=== PATIENT | male | born 1975 | race Caucasian/White ===

== ENCOUNTER → 2017-07-21 12:46 | Outpatient (CLI) | payer BC, SELFPAY ==
[2017-07-21 13:14] LABS: Basophils % 0.8 % (0.1-2.0); Eosinophils # 0.2 K/mm3 (0.0-0.4); Eosinophils % 3.6 % (0.1-12.0); Hematocrit 45.3 % (42.0-52.0); Hemoglobin 14.4 g/dL (14.1-18.0); Lymphocytes # 0.9 K/mm3 (0.7-4.5); Lymphocytes % 19.5 K/mm3 (10-50); Mean Corpuscular HGB Conc 31.7 g/dL (31.8-35.4); Mean Corpuscular Hemoglobin 29.3 pg (27.0-31.2); Mean Corpuscular Volume 92.3 fl (80-94); Mean Platelet Volume 8.2 fl (7.4-10.4); Monocytes # 0.5 K/mm3 (0.1-1.0); Monocytes % 10.1 % (1.7-9.3); Neutrophils # 3.1 K/mm3 (1.8-7.8); Platelet Count 232 K/mm3 (142-424); Red Blood Count 4.91 M/mm3 (4.60-6.20); Red Cell Distribution Width 13.3 % (11.5-17.5); White Blood Count 4.7 K/mm3 (4.8-10.8)
[2017-07-21 13:30] LABS: Alanine Aminotransferase 43 U/L (12-78); Albumin Level 3.7 gm/dL (3.4-5.0); Alkaline Phosphatase 118 U/L (46-116); Anion Gap 9.7 mEq/L (5-15); Aspartate Amino Transferase 20 U/L (15-37); Bilirubin,Total 0.2 mg/dL (0.2-1.0); Blood Urea Nitrogen 11 mg/dL (7-18); Carbon Dioxide 31 mmol/L (21.0-32.0); Chloride 108 mmol/L (98-107); Chol/HDL Ratio 2.8 (1-3.5); Cholesterol 177 mg/dL (140-200); Creatinine,Serum 0.83 mg/dL (0.70-1.30); Estimated Glomerular Filt Rate 101 ml/min (>60); Free T4 (Free Thyroxine) 0.97 ng/dl (0.76-1.46); GFR (African American) 122 ML/MIN (>60); Globulin 3.8 gm/dl (1.3-3.2); Glucose 99 mg/dL (74-106); HDL Cholesterol 63 mg/dL (27-67); LDL Cholesterol 101 mg/dL (0-130); Potassium 4.7 mmoL/L (3.5-5.1); Sodium 144 mmol/L (136-145); Thyroid Stimulating Hormone 2.41 uIU/ml (0.358-3.740); Total Protein,Serum 7.5 gm/dL (6.4-8.2); Triglycerides 67 mg/dL (30-200); VLDL Cholesterol 13 mg/dL (0-40)
== END ==
PROVIDERS: Visit Provider Emergency Medicine
DX: E66.3 Overweight (principal); R53.83 Other fatigue; R05 Cough
CPT/HCPCS: 36415; 80053; 80061; 84439; 84443; 85025

== ENCOUNTER → 2017-09-08 09:01 | Outpatient (REF) | payer BC, SELFPAY ==
[2017-09-11 19:21] LABS: Testosterone,Free 7.9 pg/mL (6.8-21.5)
[2017-09-12 18:31] LABS: Testosterone, Total, LC/MS 571.9 ng/dL (264.0-916.0)
== END ==
LOC: LAB 09:01
PROVIDERS: Visit Provider Physician Assistant
DX: R68.82 Decreased libido (principal)
CPT/HCPCS: 84402

== ENCOUNTER → 2019-01-28 07:20 | Outpatient (CLI) | payer BC, SELFPAY ==
--- NOTE | 2019-01-28 | CA_ITS ---
APPROVED REPORT Exam: Pharmacologic Technologist: sarah baez, Ht: 6 ft 0 in Wt: 240 lbs BSA: 2.30 m2 HR: 57 bpm Rhythm: NSR Indications: CP Medical History Medications: Omeprazole,,,,, Effexor,,,,, Mobic,,,,, MeLOXICAM,,,,, SilDENAFIL,,,,, VenALafaxine,,,,, Allergies: PCN Stress Test Details Test: Jeramie HR Resting HR: 75 bpm Max Heart Rate (APMHR): 175 bpm Max HR Achieved: 162 bpm Target HR (85% APMHR): 148 bpm % of APMHR: 92 Recovery HR: 97 bpm BP Resting BP: 139.0/79.0 mmHg Max BP: 176.0/77.0 mmHg Recovery BP: 176.0/77.0 mmHg ECG Resting ECG: NSR Clinical Reason for Termination: Dyspnea Exercise duration: 10:30 min Highest Stage Achieved: Exercise capacity: 12.8 METs Stress ECG Conclusion NO CHEST PAIN DURING EXERCISE. POSITIVE FOR SOA/LEG PAIN. EXERCISED 10:30. 12.8 METS. MAX HEART RATE 155 BPM WHICH IS 105% OF PM FOR AGE. TEST STOPPED DUE TO SOA AND LEG PAIN. NO ARRHYTHMIAS/ECTOPY. NO ST-T CHANGES. NEGATIVE TEST. Test Summary REST . . . . . . . Standing REST . . . . . . . Sitting REST 18:36 0.0 0.0 75 . 139/ 79 . . Stage 1 01:00 10.0 1.7 88 . . . . Stage 1 02:00 10.0 1.7 94 . . . . Stage 1 03:00 10.0 1.7 99 . 152/ 80 . . Stage 2 01:00 12.0 2.5 102 . . . . Stage 2 02:00 12.0 2.5 112 . . . . Stage 2 03:00 12.0 2.5 111 . 160/ 80 . . Stage 3 01:00 14.0 3.4 123 . . . . Stage 3 02:00 14.0 3.4 128 . . . . Stage 3 03:00 14.0 3.4 134 . 170/ 84 . . Stage 4 . . . . . . . Cardiolite injected Stage 4 01:00 16.0 4.2 86 . . . . Stage 4 01:30 16.0 4.2 109 . . . Stop exercise at 10:30 RECOVERY 01:00 0.0 0.0 135 . . . . RECOVERY 02:00 0.0 0.0 101 . . . . RECOVERY 03:00 0.0 0.0 96 . 176/ 77 . . RECOVERY 04:00 0.0 0.0 86 . 160/ 63 . . RECOVERY 04:20 0.0 0.0 87 . 160/ 63 . . Electronically signed by : Destin Ramos, 01/28/2019 19:43:05
--- NOTE | 2019-01-28 07:21 | NM_ITS ---
APPROVED REPORT Exam: Nuclear Stress Test Indication: ankush toth Patient Location: Outpatient Stress Tech: Merlyn Jefferson MI Tech:AMILCAR Gilbret RT (R)(N)(M) Ht: 6 ft 0 in Wt: 240 lbs HR: 57 bpm BP: 139/79 mmHg BSA: 2.30 m2 History: ankush toth Procedure: Patient exercised on Jeramie protocol 10:30 minutes and sec, resting heart rate 57 bpm, resting blood pressure 139/79 mmHg, with exercise maximum heart rate achived was 129 bpm which is Greater than 85 % of the maximum predicted heart rate and blood pressure was 170/84 mmHg. Test was stopped due to Shortness of breath. Patient denied any complaint of chest pain. Patient has Good exercise capacity, achieved 12.8 METs of workload on treadmill, the blood pressure response to exercise was Adequate.. Electrocardiogram Resting electrocardiogram showed sinus rhythm right ventricular conduction delay, with exercise there is less than 1.[address] segment depression noted from the baseline EKG. The EKG portion of the exercise Myoview is negative for ischemia. Cardiac Stress and Resting SPECT Images: Cardiac Stress and Resting SPECT images were obtained using technetium 99m Myoview 30.3 mCi stress and 10.64 mCi at rest. Gated SPECT with analysis of segmental wall motion and calculation of the ejection fraction also done. Cardiac stress and resting SPECT images show mild fixed defect in the inferior wall with normal contractility and the gated SPECT is likely secondary to soft tissue attenuation, no reversible ischemia seen. Computer derived ejection fraction is over 65% with no regional wall motion abnormality, right ventricle is normal size and contractility. Conclusion: 1. The EKG portion of the exercise Myoview is negative for ischemia. Patient has good exercise capacity achieved 12.8 mets of workload on treadmill, the blood pressure response to exercise was adequate, there was no exercise-induced chest discomfort . 2. No scintigraphic evidence of reversible ischemia seen, computer derived ejection fraction is over 65% with no regional wall motion abnormality, right ventricle is normal size and contractility. 3. Normal exercise Myoview study. Electronically signed by : Destin Ramos, 01/28/2019 19:46:05
--- NOTE | 2019-01-28 07:21 | CA_ITS ---
APPROVED REPORT EXAM: Comprehensive 2D, Doppler, and color-flow Echocardiogram Director Of Education: Gabrielle Sweeney RT(R) Ht: 5 ft 9 in Wt: 201lbs BSA: 2.07 BP: 113/69 mmHg Indications: CP, ex smoker, GERD, hx of gastric sleeve 2D Dimensions LVOT 2.20 cm (M/F) 1.5-2.5 M-Mode Dimensions RVDd 1.51 cm (0.9-2.6) LVDd 5.45 cm (3.5-5.7) LVDs 3.97 cm (3.5-5.7) IVSd 0.77 cm (0.6-1.1) PWd 0.91 cm (0.6-1.1) EF (Teich) 52.40% FS 27.20% EDV (Teich) 144.40 mL ESV (Teich) 68.80 mL LV Diastology E/A Ratio 1.37 Mitral Valve MV A Velocity 57.00 (40-130 cm/s) Left Ventricle Left atrium is normal size, left ventricle is normal size, visually estimated ejection fraction 55% with no regional wall motion abnormality, diastolic parameters are inconclusive. Right Ventricle Right atrium and right ventricular normal size and contractility. Aortic Valve Aortic valve is minimally thickened and fibrosed. There is no aortic stenosis aortic insufficiency. Mitral Valve Mitral valve is grossly normal, there is mild mitral regurgitation. Tricuspid Valve Tricuspid valve is grossly normal, there is mild tricuspid regurgitation. Pulmonic Valve Pulmonic valve is poorly visualized. Great Vessels Aortic root is normal size. Pericardium No significant pericardial effusion noted. Conclusion 1. Normal left ventricular size, preserved left ventricular systolic function, visually estimated ejection fraction 55% with no regional wall motion abnormality, diastolic parameters are inconclusive. 2. Mild mitral and tricuspid regurgitation 3. No significant pericardial effusion noted. Electronically signed by : Destin Ramos, 01/28/2019 20:25:00
--- NOTE | 2019-01-28 10:26 | HMH.ITSHM ---
Current Home Medications as stated by this patient Davon Wilson or auto service representative. []omeprazole mobic effexor meloxicam
== END ==
PROVIDERS: PCP Physician Assistant; Visit Provider Internal Medicine
DX: R07.9 Chest pain, unspecified (principal); Z78.9 Other specified health status; Z87.891 Personal history of nicotine dependence
CPT/HCPCS: 78452; 93017; 93306; A9502

== ENCOUNTER → 2019-02-08 13:43 | Outpatient (CLI) | payer BC, SELFPAY ==
[2019-02-08 14:34] LABS: Amphetamine/Metha Screen,Urine Negative ng/mL (<1000); Barbiturates Screen,Urine Negative ng/mL (<200); Benzodiazepines Screen,Urine Negative ng/mL (<200); Cannabinoid Screen,Urine Negative ng/mL (<50); Cocaine Screen,Urine Negative ng/mL (<300); Methadone Screen,Urine Negative ng/mL (<300); Opiate Screen,Urine Negative ng/mL (<300); Phencyclidine Screen,Urine Negative ng/mL (<25)
== END ==
PROVIDERS: Visit Provider Nurse Practitioner Family
DX: E66.9 Obesity, unspecified (principal); Z68.38 Body mass index [BMI] 38.0-38.9, adult
CPT/HCPCS: 80305

== ENCOUNTER 2020-04-21 14:27 | Emergency (ER) | payer BC, SELFPAY ==
[2020-04-21 14:50] VITALS: BP 117/86; PULSE 89; RESP 19; TEMP 36.9; O2SAT 98; BMI 37.4
--- NOTE | 2020-04-21 15:53 | HMH.EDUTC ---
[facility] Disposition Clinical Impression: Exposure to COVID-19 virus Disposition: Home, Self-Care Condition on Discharge: Good Instructions: DI for COVID-19 (Suspected or Confirmed ), Preventing the Spread of Coronavirus Discharge Instructions, Coronavirus Disease 2019 Additional Instructions: *Monitor Temp, Over the counter Motrin or Tylenol as directed/as needed Tylenol every 4 hours and Motrin every 6 hours (as long as your family doctor has told you that you can take it) for fever or pain. and straight to ER if unable to lower temp less than 101.0 after medication given *Warm salt water gargles may help to soothe the throat *Throat Lozenges *Warm fluids like tea with honey may help to soothe the throat *Sleep elevated *Humidifier/Vaporizer Follow up IMMEDIATELY for new or worsening symptoms or no Noticeable improvement over the next 48-72 hours. 911 for difficulty breathing or swallowing You were tested for today for COVID19 your test result should be back in the next 24-48 hours, you may call to the [facility] to see if your test results are back in the next 48 hours [phone] [facility] hours are 9am-9pm You was given a handout with instructions for Self Quarantine and Self isolation for while you wait on test results and what to do if they are positive If you are positive the Health Dept will be contacting you also Referrals: Yas Arndt PA [Primary Care Provider] - As needed Forms: Work/School Release Time of Disposition: 15:54 Medical Decision Making - Gabriel Inquiry Pt receiving controlled substance: No Gabriel was queried for this patient: No Vital Signs: 04/21/20 14:50 Temperature 98.4 F Temperature Source Oral Pulse Rate [Right Brachial] 89 Respiratory Rate 19 Blood Pressure [Right Arm] 117/86 Blood Pressure Mean [Right Arm] 96 Blood Pressure Source [Right Arm] Automatic Cuff Blood Pressure Position [Right Arm] Sitting 02 Sat by Pulse Oximetry 98 Oxygen Delivery Method Room Air Orders (Tests/Meds): ORDERS Category Date Time Status Covid-19 Nasal PCR ([facility]) Routine Lab 04/21/20 14:56 Received [facility] HPI - General Stated complaint: covid test Time Seen by Provider: 04/21/20 15:53 Mode of Arrival: Ambulatory Source of Information: Patient Limitations: No Limitations Description of Symptoms (Recalled from Triage Doc. by RN): COVID TEST D/T EXPOSURE; C/O FATIGUE, BODY ACHES, AND HEADACHE SINCE THURSDAY HEENT Symptoms (Recalled from RN notes): No Resp Symptoms (Recalled from RN notes): No Skin Symptoms (Recalled from RN notes): No MS Symptoms (Recalled from RN notes): No Functional Status (Recalled from RN notes): WNL - History of Present Illness Provider Complaint: Patient states that he was recently around someone that tested positive for COVID States that he has been having sinus congestion and feeling full in his ears States that he noticed today he was feeling tired and sleeping alot so he come in to get tested for COVID - Related Data Previous Rx's Medication Instructions Recorded omeprazole 40 mg capsule,delayed 40 mg PO DAILY 90 Days #90 cap 09/19/19 release Allergies Allergy/AdvReac Type Severity Reaction Status Date / Time Penicillins Allergy Mild Verified 02/08/19 09:32 - Worker's Comp Is this a Worker's Comp case?: No [facility] History - Hepatitis A Screen Drug use history?: No High risk sexual behaviors?: No History of sexually transmitted infection?: No Currently employed?: No Childcare worker?: No Do you have indoor plumbing?: Yes Do you have electricity?: Yes Attestation statement:: This patient has been screened for Hepatitis A risk factors. I have reviewed the patient's past medical history: Yes Medical History: Reports:: Depression, Gastroesophageal Reflux Disease(GERD) Denies:: Diabetes Mellitus Type 1, Diabetes Mellitus Type 2 Laterality Cases: Bilateral: Carpal Tunnel Release, Myringotomy (Ear Tubes), Tonsillectomy Other Surgeries: Yes:
[2020-04-21 16:14] VITALS: BP 117/86; PULSE 89; RESP 19; TEMP 36.9; O2SAT 98
--- NOTE | 2020-04-21 20:42 | PC.NURSE ---
PT NOTIFIED OF POSITIVE COVID RESULT
== END 2020-04-21 16:15 | disposition home or self-care (01) ==
PROVIDERS: Emergency Provider Nurse Practitioner; PCP Physician Assistant
DX: U07.1 COVID-19 (principal); K21.9 Gastro-esophageal reflux disease without esophagitis; F33.1 Major depressive disorder, recurrent, moderate; F17.290 Nicotine dependence, other tobacco product, uncomplicated; Z88.0 Allergy status to penicillin
CPT/HCPCS: 99202; G0463; U0003

== ENCOUNTER → 2022-05-21 23:30 | Outpatient (CLI) | payer BC, SELFPAY ==
[2022-05-21 19:19] LABS: Alanine Aminotransferase 27 U/L (12-78); Albumin Level 4.4 g/dl (3.5-5.0); Albumin/Globulin Ratio 1.7 (1.1-1.8); Alkaline Phosphatase 96 U/L (38-126); Anion Gap 10.9 mEq/L (5-15); Aspartate Amino Transferase 28 U/L (17-59); Bilirubin,Total 0.4 mg/dl (0.2-1.3); Blood Urea Nitrogen 15 mg/dl (9-20); Calcium 9.1 mg/dl (8.4-10.2); Carbon Dioxide 27 mmol/L (22.0-30.0); Chloride 105 mmol/L (98-107); Chol/HDL Ratio 3.3 (1-3.5); Cholesterol 184 mg/dl (140-200); Estimated Glomerular Filt Rate 103 ml/min (>60); GFR (African American) 124 ML/MIN (>60); Globulin 2.6 g/dL (1.3-3.2); Glucose 75 mg/dl (74-100); HDL Cholesterol 56 mg/dl (40-60); Potassium 3.9 mmoL/L (3.5-5.1); Sodium 139 mmol/L (136-145); Triglycerides 93 mg/dl (30-150); VLDL Cholesterol 19 mg/dL (0-40)
[2022-05-21 19:48] LABS: Prostate Specific Ag Screen 0.8 ng/ml (0.0-4.0); Thyroid Stimulating Hormone 1.92 uIU/mL (0.465-4.68)
== END ==
PROVIDERS: PCP Physician Assistant; Visit Provider Physician Assistant
DX: Z00.00 Encounter for general adult medical examination without abnormal findings (principal); Z79.899 Other long term (current) drug therapy; Z12.5 Encounter for screening for malignant neoplasm of prostate
CPT/HCPCS: 80053; 80061; 84443; G0103

== ENCOUNTER → 2022-06-06 13:37 | Outpatient (CLI) | payer BC, SELFPAY ==
--- NOTE | 2022-06-06 13:45 | XR_ITS ---
FINAL REPORT CLINICAL HISTORY: foot pain FINDINGS: Right foot Three views were obtained. There is no acute fracture or dislocation. The joint spaces appear normal. No soft tissue abnormality is identified. IMPRESSION: No acute process. Reviewed, Interpreted and Dictated by Yevgeniy Barrett III, MD Transcribed by Iveth Miller Authenticated and [facility]
--- NOTE | 2022-06-06 13:45 | XR_ITS ---
FINAL REPORT CLINICAL HISTORY: foot pain FINDINGS: Left foot Three views were obtained. There is no acute fracture or dislocation. The joint spaces appear normal. No soft tissue abnormality is identified. There is calcaneal spurring. IMPRESSION: No acute process. Reviewed, Interpreted and Dictated by Yevgeniy Barrett III, MD Transcribed by Iveth Miller Authenticated and [facility]
== END ==
LOC: RAD 13:39
PROVIDERS: PCP Physician Assistant; Visit Provider Nurse Practitioner Family
DX: M79.672 Pain in left foot (principal); M79.671 Pain in right foot
CPT/HCPCS: 73630

== ENCOUNTER → 2022-06-11 10:20 | Outpatient (CLI) | payer BC, SELFPAY ==
--- NOTE | 2022-06-11 10:23 | XR_ITS ---
FINAL REPORT CLINICAL HISTORY: ankle pain FINDINGS: AP, oblique, and lateral views of the left ankle were obtained. There is no prior exam for comparison. There is no fracture or dislocation. There is mild degenerative joint disease. The ankle mortise is intact. Soft tissues are normal. IMPRESSION: Mild degenerative joint disease. Reviewed, Interpreted and Dictated by Leia Emmanuel MD Transcribed by Iveth Miller Authenticated and [facility]
== END ==
LOC: RAD 10:21
PROVIDERS: PCP Physician Assistant; Visit Provider Physician Assistant Medical
DX: M25.572 Pain in left ankle and joints of left foot (principal)
CPT/HCPCS: 73610

== ENCOUNTER → 2022-07-22 14:14 | Outpatient (CLI) | payer BC, SELFPAY ==
--- NOTE | 2022-07-22 14:21 | US_ITS ---
FINAL REPORT CLINICAL HISTORY: BILATERAL REST PAIN,LT LEG CLAUDICATION FINDINGS: COMPLETE ANKLE/BRACHIAL INDICES BILATERAL Complete ankle brachial indices were obtained bilaterally. The right DARIUSZ is 1.2. The left DARIUSZ is 1.2. IMPRESSION: ABIs are within normal limits bilaterally. Reviewed, Interpreted and Dictated by Yevgeniy Barrett III, MD Transcribed by Iveth Miller Authenticated and [facility]
--- NOTE | 2022-07-22 14:54 | MR_ITS ---
FINAL REPORT CLINICAL HISTORY: ankle pain, r/o soft tissue mass FINDINGS: Multiplanar MR imaging of the left ankle was performed without contrast. Mild degenerative changes are present. The bony structures are intact without evidence of fracture, bone bruise or marrow edema. No osteochondral lesion is identified. The anterior talofibular ligament is not well seen, likely torn. There is irregularity of the calcaneofibular ligament, may represent a partial tear. The flexor and extensor tendons are intact. There is posterior plantar fasciitis. There is a small partial tear of the posterior plantar aponeurosis. No significant joint effusion is seen. The musculature is intact. There is no evidence of soft tissue mass or cyst. IMPRESSION: Likely tear of the anterior talofibular ligament. Partial tear of the calcaneofibular ligament. Small partial tear of the posterior plantar aponeurosis. Posterior plantar fasciitis. Reviewed, Interpreted and Dictated by Yevgeniy Barrett III, MD Transcribed by Iveth Miller Authenticated and . [facility]
== END ==
LOC: RT 14:15
PROVIDERS: PCP Physician Assistant; Visit Provider Nurse Practitioner Family
DX: I83.93 Asymptomatic varicose veins of bilateral lower extremities (principal); R09.89 Other specified symptoms and signs involving the circulatory and respiratory systems; M25.572 Pain in left ankle and joints of left foot
CPT/HCPCS: 73721; 93923

== ENCOUNTER → 2022-08-12 10:25 | Outpatient (CLI) | payer BC, SELFPAY ==
--- NOTE | 2022-08-12 10:26 | ECG_ITS ---
APPROVED REPORT Exam: Resting ECG HR:66 bpm ECG Measurements Heart Rate 66 AXES AR 191 P 62 QRSd 105 QRS 45 QT 371 T 51 QTc 384 Conclusion SINUS RHYTHM Normal ECG UNCONFIRMED REPORT Electronically signed by : Ritesh Chang MD 08/12/2022 20:17:55
--- NOTE | 2022-08-12 10:46 | XR_ITS ---
FINAL REPORT TECHNIQUE: Chest PA & Lateral CLINICAL HISTORY: HTN FINDINGS: 2 views of the chest were performed. The heart size is normal. The mediastinum is within normal limits. There is no acute infiltrate. There are no pleural effusions. There is no pneumothorax. The bony thorax appears intact. IMPRESSION: No acute cardiopulmonary process. Reviewed, Interpreted and Dictated by Justo Be MD Transcribed by Ronny Rodriguez Authenticated and [facility]
[2022-08-12 11:14] LABS: Basophils # 0.1 K/mm3 (0-0.2); Basophils % 0.7 % (0.1-2.0); Eosinophils # 0.2 K/mm3 (0.0-0.4); Eosinophils % 2.3 % (0.1-12.0); Hematocrit 42.1 % (42.0-52.0); Hemoglobin 13.7 g/dL (14.1-18.0); Lymphocytes # 2.9 K/mm3 (0.7-4.5); Lymphocytes % 39.4 % (10-50); Mean Corpuscular HGB Conc 32.5 g/dL (31.8-35.4); Mean Corpuscular Hemoglobin 29.2 pg (27.0-31.2); Mean Corpuscular Volume 89.7 fl (80-94); Mean Platelet Volume 8.2 fl (7.4-10.4); Monocytes # 0.4 K/mm3 (0.1-1.0); Monocytes % 5.7 % (1.7-9.3); Neutrophils # 3.8 K/mm3 (1.8-7.8); Neutrophils % 51.8 % (37.0-80.0); Platelet Count 284 K/mm3 (142-424); Red Blood Count 4.69 M/mm3 (4.60-6.20); White Blood Count 7.3 K/mm3 (4.8-10.8)
[2022-08-12 11:39] LABS: Alanine Aminotransferase 27 U/L (12-78); Albumin Level 3.9 g/dl (3.5-5.0); Albumin/Globulin Ratio 1.7 (1.1-1.8); Alkaline Phosphatase 84 U/L (38-126); Anion Gap 12.6 mEq/L (5-15); Aspartate Amino Transferase 24 U/L (17-59); Bilirubin,Total 0.6 mg/dl (0.2-1.3); Blood Urea Nitrogen 10 mg/dl (9-20); Carbon Dioxide 31 mmol/L (22.0-30.0); Chloride 99 mmol/L (98-107); Estimated Glomerular Filt Rate 90 ml/min (>60); GFR (African American) 109 ML/MIN (>60); Globulin 2.3 g/dL (1.3-3.2); Glucose 94 mg/dl (74-100); Potassium 4.6 mmoL/L (3.5-5.1); Sodium 138 mmol/L (136-145); Total Protein,Serum 6.2 g/dl (6.3-8.2)
== END ==
PROVIDERS: PCP Physician Assistant; Visit Provider Podiatrist
DX: Z01.818 Encounter for other preprocedural examination (principal)
CPT/HCPCS: 36415; 71046; 80053; 85025; 93005

== ENCOUNTER 2022-08-27 09:50 | Day surgery (SDC) | payer BC, SELFPAY ==
[2022-08-25 14:05] VITALS: BMI 38.0
[2022-08-27] VITALS (11 sets, daily range): BP systolic 111–146; BP diastolic 64–98; PULSE 64–92; RESP 12–18; TEMP 36.2–43; O2SAT 95–97
--- NOTE | 2022-08-27 10:18 | P.PN_ITS ---
[facility] Disclaimer: The information contained in this section may have been updated after the patient was seen, as this information can be updated by other users. 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 Anesthesia Checklist Patient Identification Patient Identification: Arm Band and Verbal (Name & ) Structural Data Admitted From: Home Planned Operative Procedure/s: Plantar fasciotomy Consent for Planned Operative Procedure(s) Verified: Yes NPO Status Verified Time NPO: 00:00 Chart Verification Results Verified: CBC and BMP Additional verifications Anesthesia Reactions: No Hx Blood Transfusions: No Airway Assessment C-Spine Mobility Assessed: Yes TMJ Mobility Assessed: Yes Dentition: Edentulous Neurological Assessment Level of Consciousness: Awake Hx Seizures: No Numbness or tingling in extremities: No Anesthesia Plan Anesthesia Risk discussed: Yes Anesthesia Plan: Verified ASA Class: II Anesthesia Type: General w/block
--- NOTE | 2022-08-27 10:30 | XR_ITS ---
FINAL REPORT CLINICAL HISTORY: Plantar Fasciotomy/Release w ankle stabilization FINDINGS: FLUOROSCOPY LESS THAN 1 HOUR HISTORY: Fluoroscopy guided injection. FINDINGS: Fluoroscopic guidance was provided for left ankle injection. A single spot film was obtained. Four seconds of fluoroscopy time were used. IMPRESSION: As above Reviewed, Interpreted and Dictated by Yevgeniy Barrett III, MD Transcribed by Molly Chandler Authenticated and [facility]
--- NOTE | 2022-08-27 10:57 | SUR.PREOP ---
1055 - TIME OUT PERFORMED AT THIS TIME FOR LEFT POPLITEAL NERVE BLOCK. Sangeetha JIMENEZ, ASSISTANT BOYS TRACK COACH PERFORMING, Rubén JOY, ASSISTANT BOYS TRACK COACH AT BEDSIDE WELL. CONT PULSE OX MONITORING APPLIED. PT PLACE ON 3 L O2 PER NASAL CANNULA. PROCEDURE END TIME @ 1110
--- NOTE | 2022-08-27 12:34 | SUR.OPER ---
1200- Received handoff report from CLAUDIA Martínez at this time.
--- NOTE | 2022-08-27 12:39 | SUR.OPER ---
1239- Called to preop and spoke with CLAUDIA Forrester and requested that she update the family per MD Azar.
--- NOTE | 2022-08-27 13:30 | XR_ITS ---
FINAL REPORT CLINICAL HISTORY: Post op ankle stab COMPARISON: 06/11/2022 FINDINGS: Left and Three views were obtained. Cast obscures the detail. Mild degenerative changes are present. IMPRESSION: No acute process. Reviewed, Interpreted and Dictated by Yevgeniy Barrett III, MD Transcribed by Iveth Miller Authenticated and [facility]
--- NOTE | 2022-08-27 13:31 | P.PNANES_ITS ---
[facility] Anesthesia Record Part I Anesthesia Record I Intake, IV Amount: 1,000 Estimated blood loss (mL): 30 Urine output (mL): 0 Blood Pressure: 146/89 SaO2: 97 Pulse Rate: 92 Respiratory Rate: 13 Temperature: 97.3 F Patient is:: Drowsy and Oral/Nasal airway Stable to PACU at:: 13:30
--- NOTE | 2022-08-27 14:11 | EXP.OP.NOTE ---
Date of procedure: 08/27/22 Pre-op Diagnosis:: Left ankle instability Left peroneal tenosynovitis Left ankle synovitis Left planter fasciitis Left gastrocnemius equinus Post-op Diagnosis:: Same Procedure performed:: Modified Brostrum ATFL + CFL repair Left ankle arthroscopy with extensive debridement Left gastrocnemius recession Left peroneal tenoynovectomy Left plantar fasciotomy Application of amniotic graft Surgeon:: Daisy Toney DPM GILL BOX OPERATOR:: Chuy Stephenson Anesthesia: GETA and regional (L popliteal nerve block) Estimated blood loss (mL): 30 Clinical Note:: Patient is a 47 year male who presents with left ankle instability and plantar fasciitis. History of right plantar fascia release with good outcomes. He has failed conservative care to left side including immobilization, modification of shoe gear, strapping, inserts, ice, elevation, and NSAIDs. He has also tried ankle bracing and home physical therapy. After a long discussion with the patient in regards to the conservative versus surgical treatment for the tendon tear/deformity, the patient has elected to proceed with surgery because they have failed conservative treatment and continue to have pain and worsening symptoms affecting daily activities.? The patient has been instructed on the planned procedure including ankle scope, ATFL/CFL repair/ankle stab, peroneal tendon repair, PF release, partial achilles lengthening, all risk versus benefits of the procedure discussed.? These include but are not limited to: bleeding, infection, nerve and blood vessel damage, need for further surgery, delay in healing of soft tissue or bone, tendon re-rupture, recurrence of deformity, arch collapse, nerve pain, failure of bones to heal, non-union, mal-union, failure of the implant, prolonged pain and recovery, prolonged edema, CRPS/RSD, DVT/PE and anesthetic complications. No guarantees were given. All questions fully answered. The patient verbalized understanding and agreed to proceed with surgery. Written consent was obtained. Operative findings:: Left ankle scope showed extensive synovitis noted. No obvious talar osteochondral defect appreciated. Left ankle instability with tear ATFL and partial tear CFL. Positive anterior drawer and talar tilt noted. Gastrocnemius equinus appreciated. Peroneal tendons intact but tenosynovitis noted to the brevis and the longus. No evidence of longitudinal tear or rupture. Planter fascia chronic synovitis. Operative note:: On this date and time patient was deemed an appropriate surgical candidate. With informed consent signed, the patient was given a pre-op left leg regional block by anesthesia. Patient was taken to the operating theater. The patient was positioned supine. General anesthesia was induced. Tourniquet was applied to the left thigh @250mmHg. IV clindamycin given. Left ankle arthroscopy with extensive debridement: Standard anterior ankle portals made with stab incision. Blunt dissection down to the level of the capsule and down to bone. An Arthrex Eve scope 1.8 mm was inserted into the medial and lateral ankle in standard technique. Synovitis noted. A Plinga 2.5 mm shaver was inserted and extensive debridement of synovitic nonviable tissue performed. No obvious talus OCD appreciated. Images taken with the scope camera. Skin cleansed. Nylon used to close the skin. Left peroneal tenosynovectomy: Incision was mapped out extending under the distal tip of the fibula along the course of the peroneal tendons. Dissection was carried down and the ATFL was visualized and noted to be attenuated and torn. CFL was also partially torn. The peroneal tendons were evaluated and no obvious tears or ruptures were noted. The peroneal tendons did have synovitis. 15 blade forceps used to debride the nonviable tendon. Wound was flushed with saline. Left modified Brostr?m ankle ligament stabilization repair: Attention was directed to the ATFL and CFL. In standard technique
--- NOTE | 2022-08-27 14:22 | SUR.PHASEII ---
Discharge teaching completed with pt and family, verbalized understanding of all info given. Kryo cuff supplied to pt. Pt verbalized pain at a 3 but is okay and will wait until gets home to take pain medication. Pt Care passed to Theron Mcgovern RN, report given.
--- NOTE | 2022-08-29 13:54 | P.PNANES_ITS ---
[facility] Anesthesia Record Part II Anesthesia Record Part II Discharge Time: 14:00 Destination: Surgical Day Care (OP Surgery) PACU nurse assessment reviewed?: Yes Patient Condition:: Good Anesthesia Complications:: None Swallowing reflex intact?: Yes Cyanosis?: No Blood Pressure: 146/83 Pulse Rate: 71 Temperature: 97.3 F Mental Status: Alert & Oriented Pain level:: 2 (headache) Nausea and/or vomitting:: None Intake, IV Amount: 0
[2022-08-29 13:56] VITALS: BP 146/83; PULSE 71; TEMP 36.3
== END 2022-08-27 14:40 | disposition home or self-care (01) ==
PROVIDERS: PCP Physician Assistant; Visit Provider Podiatrist
PROC: (CPT 27691; principal; 2022-08-27 11:15)
DX: M72.2 Plantar fascial fibromatosis (principal); M24.572 Contracture, left ankle; M25.372 Other instability, left ankle; M21.862 Other specified acquired deformities of left lower leg; G89.29 Other chronic pain; M25.572 Pain in left ankle and joints of left foot
CPT/HCPCS: 27691; 27659; 27696; 27698; 28060; 29898; 73600; 73610; 76000; 96374; C1713; J2405; Q4211

== ENCOUNTER 2022-11-24 08:00 | Outpatient (RCR) | payer BC, SELFPAY ==
--- NOTE | 2022-10-01 10:56 | HMH.PTOPEV ---
PT Outpatient Evaluation Rehab PT Outpatient Evaluation Start: 10/01/22 09:53 Freq: Status: Active Protocol: Document 10/01/22 09:53 DIRK (Rec: 10/01/22 10:56 DIRK [id number]) E-signed By Rachelle Lopez, PT Outpatient Therapy Subjective History Subjective History Pt is a 47 y/o male who reports to PT s/p left modified Brostrum ATFL + CFL repair, ankle arthroscopy with extensive debridement, gastrocnemius recession, peroneal tenoynovectomy, plantar fasciotomy, application of amniotic graftrepair performed on .Pt denies complications following surgery but states he did fall a couple times the first weeks after, denies serious injury or increased pain from the falls. Pt reports he was NWB with crutches until his last f/u appointment with Dr. Toney on 09/25/22 then was told to transition to PPWB with crutches. Pt reports he is supposed to transition to no crutches tomorrow but he states he has tried this with increased pain along the anterior ankle and achilles region. Pt reports intermittent tingling along the lateral incision and brief shocking sensations of the last 3 digits. Pt reports he has also noticed L calf atrophy and swelling along the ankle. Pt reports he has been performing the ABCs, ankle pumps and ankle circles. Pt reports he has some stinging, grinding pain along the lateral ankle with inversion AROM. Pt reports he is taking Ibuprofen/Tylenol as needed. Pt also reports he tries to ice and elevate the ankle 2-3x /day. Pt reports he returns to Dr. Toney on
--- NOTE | 2022-11-05 08:47 | HMH.RHREAS ---
Rehab Reassessment Rehab OP Re-assessment Start: 10/01/22 09:53 Freq: Status: Active Protocol: Document 11/05/22 07:54 MACKCURTIS (Rec: 11/05/22 08:47 DIRK [id number]) E-signed By Rachelle Lopez PT Rehab Re-assessment Subjective Subjective Pt reports he feels 80% improved since starting PT. Pt reports his ankle still gets sore at times with pain at worst as 1-2/10 described as a heavy ache. Pt reports he returns to Dr. Toney in mid November and is planning to return to work December 04. Pt reports he still notices he keeps his foot turned out because walking with a heel/ toe pattern causes lateral ankle pain. Pt reports he also notices this with incline walking as well. Objective Objective Notes L ankle AROM: 10 DF, 20 PF, 20 Inv, 12 EV L ankle MMT: 4+/5 grossly; unable to perform L single leg calf raise L ankle figure 8: 56 cm; calf girth: 40 cm Balance: L SLS 7 with self- corrected LOB Gait: mildly antaglic with excessive L hip ER and ankle eversion noted Assessment Progress Assessment Progressing as Expected Assessment Notes Pt has attended 6 PT visits consisting of aerobic exercise , ankle mobility/strengthening , balance/proprioception training, and modalities with good tolerance. Pt demonstrated improved ankle AROM, strength, edema, calf girth and gait this date compared to the initial evaluation. Pt continues to demonstrate pain and strength deficits with incline walking, single leg balance, and plantarflexion AROM/strength. Pt would continue to benefit from skilled PT to further
== END 2022-11-24 08:05 | disposition home or self-care (01) ==
LOC: PT 08:00
PROVIDERS: PCP Physician Assistant; Visit Provider Podiatrist
DX: M79.672 Pain in left foot (principal); G89.18 Other acute postprocedural pain
CPT/HCPCS: 97010; 97014; 97016; 97110; 97112; 97163; 97164; 97530; G0283

== ENCOUNTER 2023-06-14 11:41 | Emergency (ER) | payer BC, SELFPAY ==
[2023-06-14 11:42] VITALS: BP 138/91; PULSE 68; RESP 17; TEMP 36.8; O2SAT 97; BMI 38.0
[2023-06-14 12:00] VITALS: BP 127/83; PULSE 61; O2SAT 99
--- NOTE | 2023-06-14 12:00 | ED_ITS ---
Discharge Plan Disposition Patient Disposition: Home, Self-Care Chief Complaint: Skin/Abscess/Foreign Body Prescriptions Prescriptions: No Action omeprazole 40 mg capsule,delayed release(DR/EC) 40 mg PO DAILY 90 Days Qty: 90 3RF ibuprofen 800 mg tablet 800 mg PO BID Qty: 60 3RF fluticasone propionate [Children's Flonase Allergy Rlf] 50 mcg/actuation spray,suspension 1 spray INTRANASAL DAILY Rx Instructions: administer into each nostril Referrals Follow up/Referrals: Yas Arndt PA [Primary Care Provider] - See instructions Activity Restrictions/Add. Instructions Additional Instructions/Restrictions: Daily Zyrtec to help with symptoms. Call your family doctor to establish care for this visit to the emergency department and schedule follow-up within 48 hours to ensure improvement. If you have any worsening of your condition or any other concerning signs or symptoms, return to the emergency department or your primary care doctor for further evaluation. Clinical Impressions Clinical Impression: Acute urticaria due to infectious disease Instructions Patient Instructions: DI for Skin Abscess Discharge ED Provider: Tito Natarajan General Adult HPI General Chief complaint: Skin/Abscess/Foreign Body Stated complaint: hives all over Time Seen by Provider: 06/14/23 11:47 Mode of Arrival: Ambulatory Source of Information: Patient Limitations: No Limitations Description of Symptoms (Recalled from ER Triage Doc. by RN): pt reports to ED for rash that began approx 1030 this am. pt reports he went to work last night and everything was fine. pt reports he come home and took a shower, then laid down in bed. pt reports he woke up to red spots all over his body. History of Present Illness HPI narrative: 48-year-old male with no relevant medical history presenting with rash. Patient states that he had abdominal cramping and diarrhea the past 2 or 3 days. Woke up today and had diffuse itchy rash. No vomiting, shortness of breath, chest pain, tongue or throat swelling, wheezing, cough, or any other concerns. Has not taken anything for the rash. Related Data Home Medications Medication Instructions Recorded Confirmed fluticasone propionate 50 1 spray intranasal DAILY Allergy 08/25/22 10/23/22 mcg/actuation nasal symptoms spray,suspension (Children's Flonase Allergy Relief) Previous Rx's Medication Instructions Recorded omeprazole 40 mg capsule,delayed 40 mg PO DAILY GERD 90 days #90 05/21/22 release caps ibuprofen 800 mg tablet 800 mg PO BID pain, mild #60 tabs 08/26/22 Allergies Allergy/AdvReac Type Severity Reaction Status Date / Time Penicillins Allergy Mild Verified 11/24/22 09:00 [facility] Disclaimer: The information contained in this section may have been updated after the patient was seen, as this information can be updated by other users. 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 ROS Obtained: Yes All systems reviewed & no additional complaints except as documented Physical Exam General General appearance: alert and in no apparent distress Head Head exam: atraumatic and normocephalic Eye Eye exam: Present normal appearance, PERRL and EOMI ENT ENT exam: Present mucous membranes moist Neck Neck exam: Present normal inspection, full ROM and trachea midline Respiratory Respiratory exam: Present normal lung sounds bilaterally; Absent respiratory distress, wheezes, stridor, accessory muscle use or prolonged expiratory phase Cardiovascular Cardiovascular exam: Present normal rhythm Abdominal Exam Abdominal exam: Present soft; Absent distention, tenderness, guarding, rebound or rigidity Extremities Exam Extremities exam: Absent edema Neurological Exam Neurological exam: Present alert, oriented X3, CN II-XII intact and normal gait; Absent motor sensory deficit Skin Skin exam: Present warm, dry and rash; Absent diaphoresis or erythema Medical Decision Making Medical Records Medical records reviewed: Yes I reviewed the patient's medical records. Gabriel Inquiry Pt receiving controlled substance: No Gabriel was queried for this patient: No Vital Signs: 06/14/23 11:42 06/14/23 12:00 06/14/23 12:30 Temperature 98.2 F Temperature Source Oral Pulse Rate 61 63 Pulse Rate [Left Radial] 68 Respiratory Rate 17 16 Blood Pressure 127/83 124/85 Blood Pressure [Right Arm] 138/91 H Blood Pressure Mean 97 Blood Pressure Mean [Right Arm] 106 02 Sat by Pulse Oximetry 97 99 97 Oxygen Delivery Method Room Air Room Air Orders (Tests/Meds): ED MEDICATIONS Discontinued Medications Generic Name Dose Route Start Last Admin Trade Name Armin PRN Reason Stop Dose Admin Diphenhydramine HCl 50 mg 06/14/23 12:04 06/14/23 12:32 Diphenhydramine 25mg Capsule PO 06/14/23 12:05 50 mg ONCE ONE Administration Medical Decision Narrative: 48-year-old male with no relevant medical history presenting with rash. Patient states that he had abdominal cramping and diarrhea the past 2 or 3 days. Woke up today and had diffuse itchy rash. No vomiting, shortness of breath, chest pain, tongue or throat swelling, wheezing, cough, or any other concerns. Has not taken anything for the rash. History was obtained via conversation with patient. On arrival, patient hemodynamically stable, alert, oriented x4, appropriate, GCS 15, moving all extremities spontaneously, pupils equal and reactive to light. Full physical exam performed and significant for well-appearing male no acute distress. He does have mild, scattered urticaria on bilateral upper and lower extremities, abdomen, trunk. No wheezing, tongue or throat swelling, tachycardia, hypotension, or any other concerns. Differential includes idiopathic urticaria, contact urticaria, ingestion, among others. Patient was given Benadryl 50 mg for symptomatic management and correction of underlying abnormalities. On reevaluation, patient still itching. He was given 10 mg Decadron p.o. Given patient presentation, workup, history, this most likely represents acute urticaria, likely secondary to viral illness. Because patient at baseline without signs or symptoms of clinical decompensation, deemed appropriate for discharge. Results were relayed to patient who voiced underst anding and were agreeable to outpatient management and follow up. At the time of discharge the patient was hemodynamically stable, tolerating PO, and mobilizing appropriately. Critical Care Critical Care Time Critical Care Time: No
[2023-06-14 12:30] VITALS: BP 124/85; PULSE 63; RESP 16; O2SAT 97
[2023-06-14] MEDS: diphenhydrAMINE 25MG CAPSULE 50 MG PO (12:32)
[2023-06-14] MEDS: DEXAMETHASONE 4MG TABLET 10 MG PO (13:01)
[2023-06-14 13:13] VITALS: BP 125/90; PULSE 61; RESP 19; TEMP 36.7
== END 2023-06-14 13:14 | disposition home or self-care (01) ==
PROVIDERS: Emergency Provider Emergency Medicine; PCP Physician Assistant
DX: L50.8 Other urticaria (principal); K21.9 Gastro-esophageal reflux disease without esophagitis; Z87.891 Personal history of nicotine dependence
CPT/HCPCS: 99283

== ENCOUNTER 2024-07-07 11:03 | Day surgery (SDC) | payer BC, SELFPAY ==
[2024-07-05 16:53] VITALS: BMI 35.6
[2024-07-07 11:21] VITALS: BP 142/82; PULSE 64; RESP 18; TEMP 36.2; O2SAT 99
[2024-07-07] MEDS: LACTATED RINGERS 1000ML 1,000 ML 50 ML IV (11:31)
--- NOTE | 2024-07-07 11:50 | EXP.ANES.CKL ---
[facility] Disclaimer: The information contained in this section may have been updated after the patient was seen, as this information can be updated by other users. Medical History Sleep apnea History of COVID-19 History of gastroesophageal reflux (GERD) Allergies Foot pain Abnormal weight BMI 38.0-38.9,adult GERD (gastroesophageal reflux disease) Decreased libido Depression Surgical History (Updated 07/07/24 @ 11:28 by Ritu Bowden RN) H/O foot surgery History of ankle surgery History of carpal tunnel release Hx of tonsillectomy H/O gastric sleeve Family History Other No significant family history Social History (Updated 07/07/24 @ 11:28 by Ritu Bowden RN) Smoking Status: Never smoker alcohol intake: never substance use type: denies use current occupational status: employed Travel in the last 8 weeks: None household members: spouse 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 caffeine: Yes Have you lived/traveled outside [place] in past 30 days?: No Contact w/someone who lives/traveled outside [place] past 30 days?: No Exposure to someone with infectious disease in past 14 days?: No Do you have a fever (greater than 100.4 F or 38 C)?: No Have you tested positive for COVID-19: No Exposed to someone with COVID-19 in past 14 days?: No Do you have a sore throat?: No Do you have a cough?: No Do you have any weakness?: No Are you experiencing any nausea/vomitting?: No Do you have any diarrhea?: No Are you experiencing any unusual bleeding?: No Do you have any muscle aches/pain?: No Do you have any abdominal pain?: No Are you experiencing loss of taste or smell?: No [facility] Anesthesia Checklist Patient Identification Patient Identification: Arm Band and Family Structural Data Admitted From: Home Planned Operative Procedure/s: Colonoscopy Verified Documents: History and Physical NPO Status Verified Time NPO: 00:00 Additional verifications Patient : No Anesthesia Reactions: No Hx Blood Transfusions: No Blood Transfusion Reaction: No Cephalosporin Allergy: Yes Previous Colonoscopy: Yes Airway Assessment Mallampati Score:: Class II TMJ Mobility Assessed: Yes Dentition: Good Dentition Neurological Assessment Level of Consciousness: Awake, Alert, Appropriate and Follows Commands Hx Seizures: No Numbness or tingling in extremities: No Anesthesia Plan Anesthesia Risk discussed: Yes ASA Class: I Anesthesia Type: MAC
[2024-07-07 12:46] VITALS: O2SAT 100
--- NOTE | 2024-07-07 12:48 | P.HP_ITS ---
History of Present Illness *Admission Date: 07/07/24 *Reason for visit:: Screening colonoscopy *History of present illness: Mr. Wilson is a 49-year-old gentleman who is here for screening colonoscopy. The examination is deemed medically necessary for screening colonoscopy. The patient has been seen, interviewed and examined prior to the procedure by both myself and the anesthesia provider. [facility] Disclaimer: The information contained in this section may have been updated after the patient was seen, as this information can be updated by other users. Medical History (Updated 07/07/24 @ 12:49 by Adam Barber II, MD) Sleep apnea History of COVID-19 History of gastroesophageal reflux (GERD) Allergies Foot pain Abnormal weight BMI 38.0-38.9,adult GERD (gastroesophageal reflux disease) Decreased libido Depression Surgical History (Updated 07/07/24 @ 11:28 by Ritu Bowden RN) H/O foot surgery History of ankle surgery History of carpal tunnel release Hx of tonsillectomy H/O gastric sleeve Family History Other No significant family history Social History (Updated 07/07/24 @ 11:28 by Ritu Bowden RN) Smoking Status: Never smoker alcohol intake: never substance use type: denies use current occupational status: employed Travel in the last 8 weeks: None household members: spouse 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 caffeine: Yes Have you lived/traveled outside [place] in past 30 days?: No Contact w/someone who lives/traveled outside [place] past 30 days?: No Exposure to someone with infectious disease in past 14 days?: No Do you have a fever (greater than 100.4 F or 38 C)?: No Have you tested positive for COVID-19: No Exposed to someone with COVID-19 in past 14 days?: No Do you have a sore throat?: No Do you have a cough?: No Do you have any weakness?: No Are you experiencing any nausea/vomitting?: No Do you have any diarrhea?: No Are you experiencing any unusual bleeding?: No Do you have any muscle aches/pain?: No Do you have any abdominal pain?: No Are you experiencing loss of taste or smell?: No Other Medical History Have you received the Flu Vaccine for this season: Yes Have you received the Pneumonia Vaccine: No Review of Systems Review of Systems Review of systems (narrative): Negative *Cardiovascular Comments: Negative *Gastrointestinal Comments: Negative *Genitourinary Comments: Negative *Musculoskeletal Comments: Negative *Neurologic Comments: Negative Meds Home Medications and Allergies Home Medications ?Medication ?Instructions ?Recorded ?Confirmed ?Type omeprazole 40 mg capsule,delayed 40 mg PO DAILY GERD 90 days #90 05/21/22 07/07/24 Rx release caps fluticasone propionate 50 1 spray intranasal DAILY Allergy 08/25/22 07/07/24 Hi story mcg/actuation nasal symptoms spray,suspension (Children's Flonase Allergy Relief) ibuprofen 800 mg tablet 800 mg PO BID pain, mild #60 tabs 08/26/22 07/07/24 Rx sodium,potassium,mag sulfates 17.5 See Rx Instructions PO .COMPLEX 06/22/24 07/07/24 Rx gram-3.13 gram-1.6 gram oral soln #354 mL (Suprep Bowel Prep Kit) famotidine 10 mg tablet 40 mg PO DAILY 07/05/24 07/07/24 History New Prescriptions to Start Prescriptions: Allergies Allergy/AdvReac Type Severity Reaction Status Date / Time Penicillins Allergy Mild Hives Verified 07/07/24 11:19 Exam Data for Last 24 hours Vital signs and Labs for Last 24 Hours: Temp Pulse Resp BP Pulse Ox O2 Del Method O2 Flow Rate 97.2 F L 64 18 142/82 H 99 Nasal Cannula 5 07/07/24 11:21 07/07/24 11:21 07/07/24 11:21 07/07/24 11:21 07/07/24 11:21 07/07/24 12:46 07/07/24 12:46 I & O for Last 24 hours: Intake & Output 07/04/24 07/05/24 07/06/24 07/07/24 23:59 23:59 23:59 23:59 Weight 263 lb *Routine HEENT Exam Head: Present normocephalic Eye: Present EOMI and PERRL ENT: Present mucous membranes moist *Routine Neck Exam Neck: Present supple *Routine Respiratory Exam Respiratory: Present CTA bilaterally *Routine Cardiovascular Exam Cardiovascular: Present RRR *Routine Abdominal Exam Abdominal: Present soft and normoactive bowel sounds; Absent tenderness *Routine Rectal Exam Rectal:: deferred *Routine Genitalia Exam Genitalia:: deferred *Routine Extremities Exam Extremities: Absent cyanosis, clubbing or edema *Routine Skin Exam Skin: Present warm; Absent rash *Routine Neurological Exam Neurological: Present alert and oriented X3 Assessment and Plan *Assessment and plan (1) Screening for colon cancer: Status: Acute Category: Medical Code(s): Z12.11 - Encounter for screening for malignant neoplasm of colon Plan A/P: 1. Screening for colon cancer is the preprocedural diagnosis. The patient will be anesthetized/sedated using MAC sedation. The patient has been seen and examined. Cardiac and lung assessment prior to the examination is stable. Proceed with planned screening colonoscopy
--- NOTE | 2024-07-07 12:50 | HMH.PROCNOTE ---
[facility] Procedure Note Date: 07/07/24 Time: 13:02 Procedure Note:: Colonoscopy Procedure Report: Colonoscopy Endoscopist: Adam Barber II, MD Referring physician: Dionicio Purdy MD, [facility] Date of Procedure: July 07, 2024 Equipment: Olympus 190 variable stiffness pediatric colonoscope Sedation: MAC sedation Indication: Mr. Wilson is a 49-year-old gentleman who is here for screening colonoscopy. He reports no abdominal pain, weight loss, change in his bowel habits or rectal bleeding. He reports no family history of colon cancer. He does state that he has had a prior colonoscopy but more than a decade ago. Procedure: Prior to the procedure, a history and physical exam was performed, and patient's medications and allergies were reviewed. The risks, benefits and alternatives of the sedation and procedure were discussed with the patient. All questions were answered and informed consent was obtained. The patient was brought to the procedure room. Patient identification and proposed procedure were verified by the physician and the nurse. The patient was placed in a left lateral decubitus position and the scope was passed under direct vision. Throughout the procedure, the patient's blood pressure, pulse, and oxygen saturations were monitored continuously. The colonoscopy was accomplished without difficulty. The patient tolerated the procedure well. Findings: On digital rectal examination there was normal rectal tone. There were no external hemorrhoids. The prostate was 2+, smooth, soft, symmetric without nodules. The colonoscope was introduced through the anal canal to the rectum and advanced to the cecum. The ileocecal valve and appendiceal orifice were identified. The scope was advanced a short distance into the ileum which appeared grossly normal. The scope was then withdrawn into the colon. The cecum, ascending and transverse colon and mucosa were grossly normal. There were scattered diverticuli throughout the descending and sigmoid colon (LEFT colon). The rectum itself was normal. Upon retroflexion within the rectum there were grade 2 internal hemorrhoids. The preparation was excellent throughout with Clyo Preparation Score of 9. The cecal time was 9 minutes. Impression: 1. Left-sided diverticulosis 2. Grade 2 internal hemorrhoids Plan: The patient will not require surveillance colonoscopy again for 10 years by ACS guidelines. I would encourage psyllium bulking fiber supplementation on a maintenance basis.
[2024-07-07 13:09] VITALS: BP 99/49; PULSE 62; RESP 14; TEMP 36.1; O2SAT 98
[2024-07-07 13:19] VITALS: BP 90/46; PULSE 69; RESP 16; O2SAT 100
[2024-07-07 13:29] VITALS: BP 95/43; PULSE 79; RESP 16; O2SAT 99
[2024-07-07 13:39] VITALS: BP 105/66; PULSE 79; RESP 18; O2SAT 100
== END 2024-07-07 13:44 | disposition home or self-care (01) ==
PROVIDERS: Visit Provider Internal Medicine Gastroenterology
PROC: 0DJD8ZZ Inspection of Lower Intestinal Tract, Via Natural or Artificial Opening Endoscopic (ICD-10-PCS; CPT 45378; principal; 2024-07-07 12:30)
DX: K57.30 Diverticulosis of large intestine without perforation or abscess without bleeding (principal); K64.1 Second degree hemorrhoids; Z12.11 Encounter for screening for malignant neoplasm of colon
CPT/HCPCS: 45378; J7120